=== PATIENT | male | born 1985 | race Two or more races ===

== ENCOUNTER → 2025-06-05 | Outpatient (CLI) | payer MEDICAID, SELFPAY ==
--- NOTE | 2025-06-05 11:30 | XR_ITS ---
Examination: Retroperitoneal ultrasound, complete Technique: Multiple high resolution grayscale images of the retroperitoneum obtained, including kidneys and bladder. Exam date and time: June 05, 2025, 1031 hours INDICATIONS: Right flank pain beginning 3 months ago FINDINGS: Right kidney 11.0 cm renal cortex 1.8 cm Minimal dilatation of the calyces Suspicious for 4 mm lower pole right renal calculus Left kidney 11.1 cm cortex 2.4 cm Suspicious for 5 mm upper pole calculus No bladder mass or bladder calculi Bladder prevoid volume 465 cc Prostate volume 18 cc no prostate nodules IMPRESSION: Minimal dilatation right renal calyces, consider urinary tract infection Suspicious for small bilateral renal calculi
== END | disposition home or self-care (01) ==
LOC: CDIM 10:19
DX: N28.89 Other specified disorders of kidney and ureter (principal)
CPT/HCPCS: 76770